=== PATIENT | male | born 1975 | race Native Hawaiian/Other Pacific Islander ===

== ENCOUNTER 2018-12-22 08:46 | Outpatient (CLI) | payer BC ==
[~2018-12-22 08:46] MED LIST: KEPPRA1000 MG PO; PRAVACHOL20 MG PO
== END 2018-12-22 23:15 | disposition home or self-care (01) ==
LOC: CT 08:46
DX: R41.3 Other amnesia (principal)

== ENCOUNTER 2020-03-07 09:02 | Outpatient (CLI) | payer BC | END 2020-03-07 19:35 | disposition home or self-care (01) | LOC: RAD 09:02 | PROVIDERS: ATTEND Nurse Practitioner | DX: M17.0 Bilateral primary osteoarthritis of knee (principal) ==

== ENCOUNTER 2020-03-08 09:36 | Outpatient (CLI) | payer BC | END 2020-03-08 19:54 | disposition home or self-care (01) | LOC: RAD 09:36 | PROVIDERS: ATTEND Nurse Practitioner | DX: M17.0 Bilateral primary osteoarthritis of knee (principal) ==

== ENCOUNTER 2020-04-19 10:15 | Outpatient (CLI) | payer BC | END 2020-04-19 23:18 | disposition home or self-care (01) | LOC: RAD 10:15 | PROVIDERS: ATTEND Nurse Practitioner | DX: Z01.818 Encounter for other preprocedural examination (principal); R05 Cough ==